=== PATIENT | male | born 2000 | race Caucasian/White ===

== ENCOUNTER 2024-03-15 11:14 | Emergency (ER) | payer MEDICAID ==
[~2024-03-15] VITALS: Ht 165.1 cm; Wt 82.0 kg
[2024-03-15 11:23] VITALS: O2SAT 97
[2024-03-15 11:50] VITALS: BP 137/93; PULSE 95; RESP 16; TEMP 98.7; O2SAT 99
[2024-03-15 12:42] LABS: BASOPHILS % 0.8 % (0.0-2.0); EOSINOPHILS % 1.9 % (0.0-5.0); HEMATOCRIT. 47.2 % (42.0-52.0); HEMOGLOBIN. 16.2 g/dL (14.0-18.0); LYMPHOCYTES % 24.8 % (20.0-50.0); MEAN CORPUSCULAR HEMOGLOBIN 32.9 pg (28.0-32.0); MEAN CORPUSCULAR HGB CONC 34.2 g/dL (31.0-37.0); MEAN CORPUSCULAR VOLUME 96.1 fL (80.0-94.0); MEAN PLATELET VOLUME 7.4 fl (7.4-10.4); MONOCYTES % 8.6 % (2.0-8.0); NEUTROPHILS % 63.9 % (40.0-76.0); PLATELET 370 x1000/uL (130-400); RED BLOOD CELL COUNT 4.91 mill/uL (4.7-6.1); WHITE BLOOD COUNT 6.4 x1000/uL (4.5-11.0)
[2024-03-15 12:47] LABS: CHLORIDE 106 mEq/L (98-107); SODIUM 140 mEq/L (136-145)
[2024-03-15 12:48] LABS: CARBON DIOXIDE 29 mEq/L (21-32)
[2024-03-15 12:49] LABS: CALCIUM 10.2 mg/dL (8.7-10.4)
[2024-03-15 12:53] LABS: GLUCOSE 106 mg/dL (70-105); UREA NITROGEN BLOOD 13 mg/dL (9-23)
[2024-03-15 12:55] LABS: ALANINE AMINOTRANSFERASE 127 IU/L (10-49); ASPARTATE AMINOTRANSFERASE 50 IU/L (<34); BILIRUBIN DIRECT 0.4 mg/dL (<=3.0)
[2024-03-15 12:56] LABS: BILIRUBIN TOTAL 1.6 mg/dL (0.1-1.0)
[2024-03-15] MEDS: IBUPROFEN 600MG TABLET PO STA (13:04)
[2024-03-15] MEDS: IBUPROFEN 400MG TABLET PO ONE (13:04)
[2024-03-15] MEDS ORDERED: IBUP-2028 MT (14:26)
[2024-03-15] MEDS ORDERED: FAMO40TA70 MT (14:26)
== END 2024-03-15 15:45 | disposition home or self-care (01) ==
LOC: ER 11:14
DX: R10.13 Epigastric pain (principal)
CPT/HCPCS: 36415; 76705; 80048; 80076; 85025; 86850; 86900; 99284

== ENCOUNTER 2024-03-24 13:34 | Emergency (ER) | payer MEDICAID ==
[~2024-03-24] VITALS: Ht 165.1 cm; Wt 82.0 kg
[~2024-03-24 13:34] MED LIST: FAMO40TA70 MT; IBUP-2028 MT
[2024-03-24 13:42] VITALS: BP 134/91; PULSE 94; RESP 16; TEMP 98; O2SAT 100
[2024-03-24 15:41] LABS: BASOPHILS % 0.5 % (0.0-2.0); EOSINOPHILS % 2.2 % (0.0-5.0); HEMATOCRIT. 43.4 % (42.0-52.0); HEMOGLOBIN. 14.8 g/dL (14.0-18.0); LYMPHOCYTES % 21.5 % (20.0-50.0); MEAN CORPUSCULAR HEMOGLOBIN 32.8 pg (28.0-32.0); MEAN CORPUSCULAR HGB CONC 34.1 g/dL (31.0-37.0); MEAN CORPUSCULAR VOLUME 96.2 fL (80.0-94.0); MEAN PLATELET VOLUME 7.5 fl (7.4-10.4); MONOCYTES % 7.3 % (2.0-8.0); NEUTROPHILS % 68.5 % (40.0-76.0); PLATELET 340 x1000/uL (130-400); RED BLOOD CELL COUNT 4.51 mill/uL (4.7-6.1); RED CELL DISTRIBUTION WIDTH 13.5 % (11.6-14.6); WHITE BLOOD COUNT 7.8 x1000/uL (4.5-11.0)
[2024-03-24 15:47] LABS: CHLORIDE 106 mEq/L (98-107); POTASSIUM 3.7 mEq/L (3.5-5.1); SODIUM 141 mEq/L (136-145)
[2024-03-24 15:48] LABS: CALCIUM 10.1 mg/dL (8.7-10.4); CARBON DIOXIDE 29 mEq/L (21-32)
[2024-03-24 15:53] LABS: GLUCOSE 93 mg/dL (70-105); UREA NITROGEN BLOOD 11 mg/dL (9-23)
[2024-03-24 17:13] LABS: ALANINE AMINOTRANSFERASE 117 IU/L (10-49); ASPARTATE AMINOTRANSFERASE 54 IU/L (<34); BILIRUBIN DIRECT 0.2 mg/dL (<=3.0); CREATINE KINASE 104 IU/L (46-171); PROTEIN TOTAL 7.9 g/dL (6.0-8.3)
[2024-03-24] MEDS: FOLIC ACID 1 MG, THIAMINE HCL 100 MG, MVI, ADULT NO.1 10 ML in DEXTROSE 5% WATER 1,000 ML IV ONE (17:37)
== END 2024-03-24 17:51 | disposition left against medical advice (07) ==
LOC: ER 13:34
DX: F18.10 Inhalant abuse, uncomplicated (principal)
CPT/HCPCS: 99283; 80076; 80048; 82550; 85025; 36415; J3490 ×2; J3411; J7070